=== PATIENT | female | born 1980 | race Caucasian/White ===

== ENCOUNTER 2017-10-25 23:05 | Emergency (ER) | payer SELFPAY | END 2017-10-26 01:00 | disposition left against medical advice (07) | LOC: E/R 23:05 | DX: Z53.21 Procedure and treatment not carried out due to patient leaving prior to being seen by health care provider (principal) ==

== ENCOUNTER 2017-12-24 13:29 | Emergency (ER) | END 2017-12-24 17:23 | disposition home or self-care (01) ==

== ENCOUNTER 2018-02-13 02:16 | Inpatient (IN) | END 2018-02-15 18:30 | disposition home or self-care (01) | DRG 418 ==